=== PATIENT | female | born 1970 | race Two or more races ===

== ENCOUNTER 2019-07-27 14:23 | Emergency (ER) | payer SELFPAY ==
[~2019-07-27] VITALS: Ht 170.2 cm; Wt 72.6 kg
[2019-07-27 12:31] VITALS: BP 133/87
--- NOTE | 2019-07-27 12:39 | NUR ---
ED Nurse Note: PATIENT REPORTS THAT PATIENT HIT THE HEAD AGAINST THE METAL DOOR; PATIENT TRIPPED OVER CARPET AND FELL ONTO HER LEFT SIDE OF THE BODY. REPORT NO OPEN WOUND. LAUREN ANDERSON AND SUSHMA WYLIE NOTIFIED.
--- NOTE | 2019-07-27 12:54 | Emergency Room Report ---
History of Present Illness General Chief Complaint: Multiple Trauma/Fall Source: Patient, EMS Present Illness HPI 48-year-old female presents to the emergency department complaining of 8 out of 10 severity pain to the left shoulder, left elbow, left hip and left knee status post mechanical trip and fall just prior to arrival. Patient reports she did hit her head however she is not currently having much pain in that area. Patient reports majority of her pain is in her left knee she reports moderate swelling in the left knee and the left elbow. Pain is exacerbated upon bending. She denies midline neck or back pain. She denies taking blood thinning medications. She denies any significant past medical history. She denies . Denies numbness tingling or loss of sensation or gross motor movements of the extremities, incontinence of bowel or bladder. Denies CP, Palpitations, LOC, AMS, dizziness, Changes in Vision, weakness or a sudden severe headache. Allergies: Coded Allergies: No Known Allergies (Unverified , 07/27/19) Patient History Past Medical History: see triage record Past Surgical History: none Pertinent Family History: none Last Menstrual Period: 06/23/2019 Now: No Reviewed Nursing Documentation: PMH: Agreed; PSxH: Agreed Nursing Documentation-PMH Past Medical History: No History, Except For Hx Hypertension: Yes Review of Systems All Other Systems: negative except mentioned in HPI Physical Exam Vital Signs Date Time Temp Pulse Resp B/P (MAP) Pulse Ox O2 Delivery O2 Flow Rate FiO2 07/27/19 12:23 98.6 85 16 133/87 (102) 99 Room Air Sp02 EP Interpretation: reviewed, normal General Appearance: no apparent distress, alert, GCS 15, non-toxic Head: normocephalic, atraumatic Eyes: bilateral eye normal inspection, bilateral eye PERRL ENT: hearing grossly normal, normal voice Neck: full range of motion, no bony tend, tender lateral - mildly on the left side Respiratory: chest non-tender, lungs clear, normal breath sounds, no respiratory distress, no wheezing, speaking full sentences Cardiovascular #1: regular rate, rhythm, normal capillary refill Cardiovascular #2: 2+ dorsalis pedis (R) - post. tibialis, 2+ dorsalis pedis (L ) - post. tibialis Gastrointestinal: non tender, soft Musculoskeletal: back normal, normal range of motion, tender - TTP Left knee with no increased laxity on valgus or varus stressing, negative anterior posterior drawer sign. Tenderness palpation to the lateral aspect of the left hip, no obvious deformity, no bruising. Tenderness to palpation and mild swelling to the left elbow, free range of motion with some pain. Tenderness to palpation to the lateral and caudal aspect of the left shoulder, full range of motion without clicking, no obvious step-off or deformity. Neurologic: alert, motor strength/tone normal, oriented x3, sensory intact, responsive, speech normal Psychiatric: judgement/insight normal Skin: normal color, normal inspection Medical Decision Making PA Attestation Dr. Vera is my supervising Physician whom patient management has been discussed with. Diagnostic Impression: Primary Impression: Knee sprain Qualified Codes: S83.92XA - Sprain of unspecified site of left knee, initial encounter Additional Impressions: Contusion of multiple sites Shoulder pain, left Qualified Codes: M25.512 - Pain in left shoulder Elbow pain, left ER Course 48-year-old female presents to the emergency department complaining of 8 out of 10 severity pain to the left shoulder, left elbow, left hip and left knee status post mechanical trip and fall just prior to arrival. Patient reports she did hit her head however she is not currently having much pain in that area. Patient reports majority of her pain is in her left knee she reports moderate swelling in the left knee and the left elbow. Pain is exacerbated upon bending. She denies midline neck or back pain. She denies taking blood thinning medications. She denies any significant past medical history. She denies . Denies numbness tingling or loss of sensation or gross motor movements of the extremities, incontinence of bowel or bladder. Denies CP, Palpitations, LOC, AMS, dizziness, Changes in Vision, weakness or a sudden severe headache. Ddx considered but are not limited to Fracture, dislocation, contusion, Sprain/ Strain/Spasm, Epidural abscess, Neoplastic mets. Vital signs: are WNL, pt. is afebrile H&PE are most consistent with musculoskeletal injury will perform imaging to r/ o fractures/dislocations. ORDERS: - X-ray 's : Knee, left hip, left elbow, left shoulder ED INTERVENTIONS: - Regent PO -- Left arm Sling applied by service desk technician. Pt. remains neurovascularly intact. -Knee Immobilizer splint applied to the left knee by service desk technician. Pt. remains neurovascularly intact. --Patient is provided with crutches and instructed on their use DISCHARGE: At this time pt. is stable for d/c to home. Will provide printed patient care instructions, and any necessary prescriptions. Care plan and follow up instructions have been discussed with the patient prior to discharge. Other X-Ray Diagnostic Results Other X-Ray Diagnostic Results #1: X-Ray ordered: Left Knee # of Views/Limited Vs Complete: 3 View Indication: Pain EP Interpretation: Yes PA Xray: Interpretation reviewed, by supervising MD, and agrees with findings. Interpretation: no dislocation, no soft tissue swelling, no fractures Impression: No acute disease Electronically Signed by: Celine Fam PA-C Other X-Ray Diagnostic Results #2: X-Ray ordered: Left hip # of Views/Limited Vs Complete: 1 View Indication: Pain EP Interpretation: Yes PA Xray: Interpretation reviewed, by supervising MD, and agrees with findings. Interpretation: no dislocation, no soft tissue swelling, no fractures Impression: No acute disease Electronically Signed by: Celine Fam PA-C Other X-Ray Diagnostic Results #3: X-Ray ordered: Left elbow # of Views/Limited Vs Complete: 3 View Indication: Pain EP Interpretation: Yes PA Xray: Interpretation reviewed, by supervising MD, and agrees with findings. Interpretation: no dislocation, no soft tissue swelling, no fractures Impression: No acute disease Electronically Signed by: Celine Fam PA-C Other X-Ray Diagnostic Results #4: X-Ray ordered: Shoulder- Left # of Views/Limited Vs Complete: 3 View Indication: Pain EP Interpretation: Yes PA Xray: Interpretation reviewed, by supervising MD, and agrees with findings. Interpretation: no dislocation, no soft tissue swelling, no fractures Impression: No acute disease Electronically Signed by: Celine Fam PA-C Last Vital Signs Date Time Temp Pulse Resp B/P (MAP) Pulse Ox O2 Delivery O2 Flow Rate FiO2 07/27/19 12:31 85 16 Room Air 07/27/19 12:31 98.6 133/87 99 Disposition: HOME, SELF-CARE Condition: Stable Departure Forms: Return to Work Return to Work Date: Jul 31, 2019 Work Restrictions: No Heavy Lifting, No Prolonged Standing Other Restrictions: May return Sooner if Symptoms have resolved. Return to Full Activity: Aug 03, 2019 Patient Instructions: Contusion, [id number], Elbow Contusion, Knee Sprain, [id number] Additional Instructions: Take medications as directed. Follow up with an CT SCAN TECHNICIAN in 3-5 days, even if your symptoms have resolved. If symptoms persist MRI may be required at the discretion of your PCP or Ortho Specialist. --Please review list of primary care clinics, if you do not already have a primary care provider who can give you an Orthopedic Referral. Return sooner to ED if new symptoms occur, or current symptoms become worse. Do not drink alcohol, drive, or operate heavy machinery while taking Regent as this may cause drowsiness. - Please note that this Emergency Department Report was dictated using [email or web address][email or web address] operator technology software, occasionally this can lead to erroneous entry secondary to interpretation by the dictation equipment. Celine Fam Jul 27, 2019 12:54
--- NOTE | 2019-07-27 14:16 | Diagnostic Imaging Report ---
Indications: Left knee pain Technique: Three views of the left knee Comparison: None Findings: No acute fractures. No dislocations. Joint spaces are preserved. No radiopaque foreign body. Normal mineralization. Impression: No acute process
--- NOTE | 2019-07-27 14:18 | Diagnostic Imaging Report ---
Indications:Left elbow pain Technique: Three or 4 views of the left elbow Comparison: None Findings: There is no evidence of joint effusion. Corticated ossific densities project at the medial and lateral epicondyles. No acute fractures. No dislocations. Joint spaces are preserved Impression: Medial and lateral epicondylar bony opacities, likely unfused apophyses or sequelae of old injury. No definite acute bony trauma
--- NOTE | 2019-07-27 14:20 | Diagnostic Imaging Report ---
Indication: Left shoulder pain Technique: 3 views of the left shoulder Comparison: none Findings: No acute fractures. No dislocations. Joint spaces are preserved Impression: Negative
[~2019-07-27 14:23] MED LIST: HYDROcodone/Acetamin 5/325 tab ORAL ONE
[2019-07-27] MEDS ORDERED: IBUPROFEN600 MG ORAL (14:27)
--- NOTE | 2019-07-27 14:44 | Diagnostic Imaging Report ---
Indication: Left hip pain Technique: 2 views of the left hip Comparison: none Findings: Body habitus limits evaluation. No acute fractures. No dislocations. Joint spaces are preserved Impression: Negative
[2019-07-27 15:05] VITALS: BP 133/87
--- NOTE | 2019-07-27 15:05 | NUR ---
ER DISCHARGE NOTE: Patient is cleared to be discharged per ERMD, pt is aox4, on room air, with stable vital signs. pt was given dc and prescription instructions, pt was able to verbalize understanding, pt is able to ambulate with steady gait. pt took all belongings.
== END 2019-07-27 15:05 | disposition home or self-care (01) ==
LOC: EMR 14:23
DX: S83.92XA Sprain of unspecified site of left knee, initial encounter (principal); M25.512 Pain in left shoulder; M25.522 Pain in left elbow; T14.8XXA Other injury of unspecified body region, initial encounter; I10 Essential (primary) hypertension; W01.0XXA Fall on same level from slipping, tripping and stumbling without subsequent striking against object, initial encounter; Y93.9 Activity, unspecified; Y92.9 Unspecified place or not applicable
CPT/HCPCS: 29505; 73502; 99284